=== PATIENT | male | born 1995 | race Caucasian/White ===

== ENCOUNTER 2020-11-26 08:01 | Outpatient (REF) | payer OTHER, SELFPAY | END 2020-11-26 08:02 | disposition home or self-care (01) | LOC: HO.LAB 08:01 | PROVIDERS: Visit Provider Internal Medicine | DX: Z20.822 Contact with and (suspected) exposure to COVID-19 (principal) | CPT/HCPCS: 36415; C9803; U0003 ==

== ENCOUNTER 2021-01-09 15:56 | Emergency (ER) | payer OTHER, SELFPAY ==
--- NOTE | ~2021-01-09 | XR_ITS ---
EXAMINATION: XR ANKLE, RIGHT CLINICAL INFORMATION: Pain status post injury COMPARISON: None TECHNIQUE: AP, lateral, and mortise views of the right ankle. FINDINGS: No acute fracture or dislocation. Ankle mortise is congruent. Talar dome intact. Faint calcification projected recommendation to the calcaneus on the AP view the expected location of the deep fibers of the LCL could represent an age-indeterminate periosteal avulsion fracture or dystrophic calcification related to remote ligamentous injury. XR/XR ankle RT min 3V IMPRESSION: No acute fracture or dislocation. Faint calcification projecting over the expected location of the deep fibers of the LCL. Diagnostic considerations as above.
[2021-01-09 16:12] VITALS: BP 115/74; PULSE 90; RESP 18; TEMP 36.6; O2SAT 96; BMI 20.3
[2021-01-09] MEDS: Ibuprofen 600 MG TABLET PO (16:31)
--- NOTE | 2021-01-09 16:37 | ED_ITS ---
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 He states at 2pm he rotated his ankle outward when he was stepping down on a customers stairs today. He heard a click but doesn't know if it came form his ankle or from his phone hitting the cement. He did not fall. He did not sustain any other injuries. He reports minimal swelling and no bruising as of yet but he is having pain putting pressure on his foot and walking. No numbness or tingling. MD complaint: ankle injury Onset (ago): hour(s) (2) Injury: Right: foot Type of Injury: eversion Place: work Severity: moderate Relieving factors: rest Exacerbating factors: weight bearing, movement and palpation Context: walking Associated symptoms: snap/pop sensation and able to partially bear weight Other symptoms: none Treatments prior to arrival: cold therapy Related Data Previous Rx's Medication Instructions Recorded ibuprofen 600 mg PO Q8H PRN #20 tab 01/09/21 Allergies Allergy/AdvReac Type Severity Reaction Status Date / Time ENVIRONMENTAL Allergy Unknown SNEEZING, Uncoded 07/22/20 16:32 STUFFY NOSE SEASONAL ALLERGIES Allergy Unknown RUNNY NOSE Uncoded 07/22/20 16:32 Review of Systems Review of Systems: Constitutional: No Fever, No Chills Musculoskeletal: + joint pain, No Myalgias Skin: No Skin Lesions, No rash Neuro: No Weakness, No Numbness Heme/Lymph: No Bruising PMFSH Past Medical History Attestation statement: The following information was validated with the patient. Social History Social History Advance Directives: No Advance Directives Information Provided: No Physical Exam Vital Signs: Vital Signs: Last Vital Signs Temp 97.8 F 01/09/21 16:12 Pulse 90 01/09/21 16:12 Resp 18 01/09/21 16:12 BP 115/74 01/09/21 16:12 Pulse Ox 96 01/09/21 16:12 Body Mass Index 20.3 Appearance: Alert. Oriented X3. No acute distress. HEENT: normal inspection CVS: Normal heart rate and rhythm. Pulses normal. Respiratory: No respiratory distress. Skin: Skin warm and dry. Normal skin color. Normal skin turgor. No rashes. Extremities: right ankle with normal inspection, Neuro: Oriented X 3. No motor deficit. No sensory deficit. Course Course Course Narrative: 25 y/o male with right ankle pain after injury today. XR pen manny. Reevaluation(s) Reevaluation #1: XR showing No acute fracture or dislocation. Ankle mortise is congruent. Talar dome intact. Faint calcification projected recommendation to the calcaneus on the AP view the expected location of the deep fibers of the LCL could represent an age-indeterminate periosteal avulsion fracture or dystrophic calcification related to remote ligamentous injury. Given injury occurred today and he is having difficulty/pain with walking, will place in posterior short leg splint and refer to Orthopedics. Results and plan discussed with the patient who agrees with plan. Reevaluation #2: Splint applied by tech with adequate positioning. NV intact distally. Using crutches well. Stable for discharge. Discharge Plan Discharge Clinical Impression: Ankle sprain and strain Avulsion fracture of ankle Qualifiers: Encounter type: initial encounter Fracture type: closed Laterality: right Qualified Code(s): S82.891A - Other fracture of right lower leg, initial encounter for closed fracture Patient Disposition: Home, Self-Care Instructions: Ankle Sprain (ED), Avulsion Fracture (ED) Additional Instructions: Do not bear weight on your ankle until you are evaluated by Orthopedics. Rest and use ice several times per day. Elevate your foot when possible. Take Motrin and/or Tylenol as needed for pain. Follow up with Orthopedics this week. Prescriptions: New ibuprofen 600 mg tablet 600 mg PO Q8H PRN (Reason: pain) Qty: 20 RF: 0 Referrals: [facility] [Provider Group] - 2 days Taran Stanley MD [Physician] - 2 days (avulsion fx ankle) Stand Alone Forms: Work/School Release
--- NOTE | 2021-01-09 18:23 | PC.NURSE ---
POSTERIOR SHORT LEG SPLINT APPLIED TO R LEG. CRUTCHES GIVEN PROPER TRAINING WAS TAUGHT.
== END 2021-01-09 17:50 | disposition home or self-care (01) ==
PROVIDERS: Emergency Provider Internal Medicine; PCP Internal Medicine
DX: S82.891A Other fracture of right lower leg, initial encounter for closed fracture (principal); X50.1XXA Overexertion from prolonged static or awkward postures, initial encounter; Y93.89 Activity, other specified; Y92.018 Other place in single-family (private) house as the place of occurrence of the external cause; Y99.0 Civilian activity done for income or pay
CPT/HCPCS: 29515; 73610; 99283

== ENCOUNTER → 2021-01-18 14:02 | Outpatient (BNVA) | payer OTHER, SELFPAY | PROVIDERS: PCP Internal Medicine; Visit Provider Physician Assistant | DX: S93.401A Sprain of unspecified ligament of right ankle, initial encounter (principal) | CPT/HCPCS: 99202 ==

== ENCOUNTER 2022-04-01 23:08 | Emergency (ER) | payer OTHER, SELFPAY ==
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
[2022-04-01 23:19] VITALS: BP 138/88; BP 143/93; PULSE 113; PULSE 118; RESP 16; TEMP 36.6; O2SAT 95; O2SAT 96; BMI 19.8
[2022-04-02] MEDS: Ketorolac Tromethamine 30 MG/ML VIAL 15 MG IVPUSH (00:24)
[2022-04-02 00:26] LABS: MANUAL DIFF FLAG NO
[2022-04-02 00:28] LABS: Basophils Percent Auto 0.4 % (0-2); Eosinophils Absolute Auto 0.3 X10*3/uL (0.0-0.4); Eosinophils Percent Auto 2.8 % (0-4); Hemoglobin 14.8 g/dl (14.0-18.0); Imm Gran Abs Auto 0.02 X10*3/uL (0.00-0.03); Imm Gran Pct Auto 0.2 % (0.0-0.4); Lymphocytes Absolute Auto 3.1 X10*3/uL (1.2-4.9); Lymphocytes Percent Auto 28.5 % (20-40); Mean Corpuscular HGB Conc 35.2 g/dl (31.0-36.0); Mean Corpuscular Hemoglobin 31.6 pg (27.0-33.0); Mean Corpuscular Volume 89.7 fL (80.0-98.0); Mean Platelet Volume 9.1 fL (9.4-12.4); Monocytes Absolute Auto 0.6 X10*3/uL (0.1-1.2); Monocytes Percent Auto 5.9 % (2-11); Neutrophils Absolute Auto 6.8 x10*3/uL (2.0-8.3); Neutrophils Percent Auto 62.2 % (45-73); Platelet Count 243 X10*3/uL (160-400); Red Blood Count 4.68 X10*6/uL (4.60-5.80); Red Cell Distribution Width 12.4 % (11.0-16.0); White Blood Count 10.9 X10*3/uL (4.8-10.8)
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
[2022-04-02 00:38] LABS: Ethanol 239 mg/dL
[2022-04-02 00:39] LABS: INTERNATIONAL NORM RATIO 0.9 (0.9-1.1); Prothrombin Time 10.6 SEC (9.9-13.0)
--- NOTE | 2022-04-02 00:40 | PC.NURSE ---
Pt A+Ox3, Airway patent, Pt speaking on phone to family, pain meds given, this RN continues to monitor.
[2022-04-02] MEDS: Diphth,Pertus(ACell),Tet Adult 0.5 ML SYRINGE IM (00:42)
[2022-04-02 00:43] LABS: Alanine Aminotransferase 37 U/L (0-40); Albumin Level 4.4 g/dL (3.5-5.0); Alkaline Phosphatase 107 U/L (39-117); Anion Gap 14 (12-20); Aspartate Amino Transferase 49 U/L (5-37); Bilirubin Total 0.7 mg/dL (0.0-1.0); Blood Urea Nitrogen 14 mg/dL (9-16); Calcium 9.3 mg/dL (8.4-10.2); Carbon Dioxide 23 mmol/L (22-29); Chloride 110 mmol/L (96-108); Creatinine Clr Calc Pharmacy 78.4; Estimated Glomerular Filt Rate > 60; Glucose Random 102 mg/dL (60-115); Potassium 3.7 mmol/L (3.3-5.1); Sodium 143 mmol/L (135-145); Total Protein 7.3 g/dL (6.5-8.0)
[2022-04-02 00:54] LABS: COVID-19 Test Negative (Negative); IDNOW Serial# 9DB6401D
[2022-04-02 01:11] VITALS: BP 136/74; PULSE 93; RESP 16; O2SAT 96
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
== END 2022-04-02 01:30 | disposition short-term general hospital (02) ==
LOC: HO.ED 04-02 01:06
PROVIDERS: Emergency Provider Student in an Organized Health Care Education/Training Program
DX: S02.609A Fracture of mandible, unspecified, initial encounter for closed fracture (principal); S50.01XA Contusion of right elbow, initial encounter; S50.311A Abrasion of right elbow, initial encounter; F10.129 Alcohol abuse with intoxication, unspecified; Y90.7 Blood alcohol level of 200-239 mg/100 ml; Y04.2XXA Assault by strike against or bumped into by another person, initial encounter; Y93.9 Activity, unspecified; Y92.9 Unspecified place or not applicable; Y99.9 Unspecified external cause status; Z20.822 Contact with and (suspected) exposure to COVID-19; Z79.899 Other long term (current) drug therapy
CPT/HCPCS: 36415; 70486; 73080; 80053; 82077; 85025; 85610; 87635; 90471; 90715; 96374; 99284; 99285; J1885

== ENCOUNTER 2024-06-16 14:41 | Emergency (ER) | payer OTHER, SELFPAY ==
--- NOTE | ~2024-06-16 | CT_ITS ---
EXAMINATION: CT ANGIOGRAM CHEST CLINICAL INFORMATION: Chest pain to back after cocaine use COMPARISON: Chest radiograph 04/23/2018, CT neck 10/01/2019 TECHNIQUE: Multiple axial images were obtained through the chest after the administration of 70 mL of Omnipaque 350 intravenous contrast. Extensive vascular post-processing including two-dimensional and three-dimensional reformatted images were created and reviewed on an independent workstation. This CT examination was performed using dose optimization techniques as appropriate, variously including the following: *Automated exposure control *Adjustment of mA and/or kV according to patient size (this includes techniques or standardized protocols for targeted exams where dose is matched to indication/reason for exam; i.e. extremities or head) *Use of iterative reconstruction technique DLP: 205 mGy-cm FINDINGS: Vascular: There is a normal caliber ascending thoracic aorta, aortic arch and descending thoracic aorta and proximal abdominal aorta without aneurysm or dissection. The great vessels are all widely patent without stenosis or dissection. Celiac artery, SMA and renal arteries are widely patent. LUNGS: Some mild patchy reticular nodular opacities in the superior segment of the left lower lobe which are likely infectious/inflammatory. There is no dense consolidation. No suspicious pulmonary nodules. Pleura: No pleural effusion or pneumothorax. Mediastinum: Normal thyroid. No bulky mediastinal lymphadenopathy. Normal heart size, no pericardial effusion. No significant coronary artery calcifications. Axilla: No bulky axillary lymphadenopathy. Upper abdomen: No acute abnormality in the visualized upper abdomen. Osseous structures: There is a mild inferior and plate compression deformity in the T4 vertebral body which is age indeterminate, this is new compared with 10/01/2019. Correlate with clinical history and exam. CT/CT angio chest aorta IMPRESSION: 1. No acute vascular abnormality in the chest. 2. Mild patchy reticular nodular opacities in the superior segment of the left lower lobe are likely infectious/inflammatory. 3. Mild inferior endplate compression deformity in the T4 vertebral body which is age indeterminate, this is new compared with 10/01/2019. Correlate with clinical history and exam. Fleischner guidelines were followed.
[2024-06-16 14:45] VITALS: BP 132/88; PULSE 108; O2SAT 97
[2024-06-16 14:51] VITALS: BP 108/67; PULSE 88; RESP 22; TEMP 36.2; O2SAT 99; BMI 18.8
--- NOTE | 2024-06-16 15:03 | ED_ITS ---
HPI - General Adult General Chief complaint: ETOH/Substance Use Stated complaint: PT STS SMOKED TOO MUCH CRACK TODAY PER EMS Time Seen by Provider: 06/16/24 15:16 Source: patient Mode of arrival: ambulatory Limitations: other (poor historian) History of Present Illness ED Provider: DION RANGEL narrative: 28 yo male hx of asthma but using a significant amount of crack cocaine today. He just used 1 hour ago he initially complained of coming here to get help with his substance abuse but in triage room c/o feeling dizzy like he was going to pass out with chest pain going to his back. He feels very nauseated. He notes this has never happened before. He has no problems with his heart that he is aware of. MD complaint: crack cocaine use Onset (ago): day(s) (1) Location: chest Radiation: back Severity: severe Quality: stabbing Pain Consistency: constant Relieving factors: none Exacerbating factors: none Associated symptoms: nausea/vomiting, shortness of breath and weakness Treatments prior to arrival: none Related Data Previous Rx's ?Medication ?Instructions ?Recorded doxycycline hyclate 100 mg tablet 100 mg PO BID #14 tabs 06/17/24 Allergies Allergy/AdvReac Type Severity Reaction Status Date / Time ENVIRONMENTAL Allergy Unknown SNEEZING, Uncoded 06/16/24 14:55 STUFFY NOSE SEASONAL ALLERGIES Allergy Unknown RUNNY NOSE Uncoded 06/16/24 14:55 Review of Systems 2 Review of Systems: Constitutional : No Weight loss, No Fever, No Chills ENT/Mouth : No sore throat, No Rhinorrhea Eyes: No Eye Pain, No Swelling Cardiovascular : pos Chest Pain, pos SOB, no Dyspnea on Exertion, No Orthopnea, No Edema, No Palpitations Respiratory : No Cough, No Sputum Gastrointestinal : pos Nausea, No Vomiting, No Diarrhea, No abdominal Pain, No Hematochezia, No Melena Genitourinary : No Dysuria, No Urinary Frequency Musculoskeletal : No joint pain, No Myalgias, No Joint Swelling Skin : No Skin Lesions, No rash Neuro : No Weakness, No Numbness, No Dizziness, No Headache Psych : pos Anxiety/Panic, No Depression Heme/Lymph: No Bruising, No Lymphadenopathy Endocrine : No Polyuria, No Polydipsia All other systems reviewed and are negative PMFSH Social History Social History Use of substances other than those prescribed or required for medical reasons: Yes Substance Use Type: Crack/Cocaine Substance Use Frequency: Occasionally Last Used Substance: Hours (ago) Advance Directives: No Advance Directives Information Provided: No Do you have a plan to hurt others: No Plan Current occupational status: employed 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 Oriented X3. anxious rude hyperventilating moderate acute distress. Eyes: Pupils equal, round and reactive to light. ENT: Pharynx normal. Neck: Normal inspection. Neck supple. CVS: Normal heart rate and rhythm. Pulses normal. Respiratory: No respiratory distress. Breath sounds normal. Abdomen: Soft and nontender. Skin: Skin warm and clammy. Normal skin color. Extremities: No lower extremity edema. Neuro: Oriented X 3. No motor deficit. No sensory deficit. Course Course Course Narrative: RME performed by Wendy Jennings PA-C. Patient is a 28 year old assigned male at presenting to the emergency department with nausea and dizziness. Patient states that he is concerned because he used too much crack. Detailed physical exam and review of systems are deferred to the cylinder block hole reliner. Labs ordered. Patient placed back in the waiting room pending room availability and results. Reevaluation(s) Reevaluation #1: DR. Loja' note: VSS, no events overnight reported by nursing, care team input is appreciated and patient to be going to [facility] rehab transportation will be provided by care team, discharge patient denies SI, HI, hallucination. Patient had CTA showed possible pneumonia received doxycycline will continue doxycycline was sent to patient's pharmacy, Will discontinue physician observation. Medications Administered Generic Name Dose Route Start Last Admin Trade Name Freq PRN Reason Stop Dose Admin Doxycycline Monohydrate 100 mg 06/16/24 21:00 06/17/24 09:02 Doxycycline Monohydrate 100 Mg Capsule PO 06/23/24 09:01 100 mg BID TAHIR Administration Lorazepam 2 mg 06/16/24 18:36 06/17/24 03:03 Lorazepam 1 Mg Tablet PO 2 mg Q3H PRN Administration Anxiety Discontinued Medications Generic Name Dose Route Start Last Admin Trade Name Paty PRN Reason Stop Dose Admin Lactated Ringer's 1,000 mls @ 999 mls/hr 06/16/24 15:25 06/16/24 16:49 Lr IV 06/16/24 16:25 Infused .Q1H1M ONE Infusion Iohexol 100 ml 06/16/24 16:39 06/16/24 16:39 Iohexol 350 Mg/Ml 100 Ml Infus..Btl IV 06/16/24 16:40 70 ml ONCE ONE Administration Lorazepam 2 mg 06/16/24 15:25 06/16/24 15:39 Lorazepam 2 Mg/Ml Vial IVPUSH 06/16/24 15:26 2 mg ONCE ONE Administration Procedures EJ/Peripheral Line Arm R: Time Out Performed: Yes Skin Cleansed in Sterile Fashion: Yes Size (gauge): 20 IV Secured and Dressing Applied: Yes Patient Tolerated Procedure: well and no complications Medical Decision Making Medical Decision Making [facility] Narrative: 28 yo male with heavy crack cocaine use now with severe anxiety but also chest pain to the back at this time will need basic labs, CTA of chest, repeat EKGs, trop x 2, IV ativan could be coronary spasm, dissection Differential Diagnosis Differential Diagnoses: The differential diagnosis associated with the presentation includes coronary spasm, dissection, drug use, anxiety Admission/Observation Consideration of admission/observation: Escalation of care including admission/observation considered physician observation started at 630pm pending CARE team PO phill for lung possible early pneumonia Lab Data [facility] Lab Attestation statement: I reviewed the patient's lab results. trop flat 06/16/24 15:25 06/16/24 15:25 Labs: Lab Results 06/16/24 06/16/24 06/16/24 Range/Units 15:25 15:53 17:54 WBC 10.7 (4.8-10.8) X10*3/uL RBC 4.91 (4.60-5.80) X10*6/uL Hgb 15.6 (14.0-18.0) g/dl Hct 43.5 (42.0-52.0) % MCV 88.6 (80.0-98.0) fL MCH 31.8 (27.0-33.0) pg MCHC 35.9 (31.0-36.0) g/dl RDW 12.0 (11.0-16.0) % Plt Count 257 (160-400) X10*3/uL MPV 9.1 L (9.4-12.4) fL Immature Gran % (Auto) 1.0 H (0.0-0.4) % Neut % (Auto) 73.7 H (45-73) % Lymph % (Auto) 18.4 L (20-40) % Darke % (Auto) 5.1 (2-11) % Eos % (Auto) 1.4 (0-4) % Baso % (Auto) 0.4 (0-2) % Lymph # (Auto) 2.0 (1.2-4.9) X10*3/uL Darke # (Auto) 0.6 (0.1-1.2) X10*3/uL Eos # (Auto) 0.2 (0.0-0.4) X10*3/uL Baso # (Auto) 0.0 (0.0-0.2) X10*3/uL Abs Immat Gran (auto) 0.11 H (0.00-0.03) X10*3/uL Absolute Neuts (auto) 7.9 (2.0-8.3) x10*3/uL Absolute Nucleated RBC 0.000 (0.0-0.012) X10*3/uL Nucleated RBC % (auto) 0.0 (0.0-0.2) /100WBC Sodium 140 (135-145) mmol/L Potassium 3.6 (3.3-5.1) mmol/L Chloride 103 (96-108) mmol/L Carbon Dioxide 22 (22-29) mmol/L Anion Gap 19 (12-20) BUN 24 H (9-16) mg/dL Creatinine 1.39 (0.5-1.4) mg/dL Estim Creat Clear Calc 60.9 Estimated GFR > 60 Random Glucose 132 H (60-115) mg/dL Calcium 10.8 H D (8.4-10.2) mg/dL Magnesium 2.2 (1.6-2.6) mg/dL Total Bilirubin 1.5 H (0.0-1.0) mg/dL AST 24 (5-37) U/L ALT 24 (0-40) U/L Alkaline Phosphatase 91 (39-117) U/L Total Creatine Kinase 231 H (38-174) U/L Troponin I High Sens < 2.7 < 2.7 (<3.5-35.0) ng/L Total Protein 8.3 H (6.5-8.0) g/dL Albumin 5.2 H (3.5-5.0) g/dL Urine Opiates Screen (Not Detect) Ur Buprenorphine Scrn (Not Detect) ng/mL Ur Oxycodone Screen (Not Detect) ng/mL Urine Methadone Screen (Not Detect) ng/mL Urine Fentanyl Screen (Not Detect) Ur Barbiturates Screen (Not Detect) Ur Phencyclidine Scrn (Not Detect) Ur Amphetamines Screen (Not Detect) U Benzodiazepines Scrn (Not Detect) Urine Cocaine Screen (Not Detect) U Marijuana (THC) Screen (Not Detect) Ethyl Alcohol < 10 mg/dL Influenza Type A (PCR) NEGATIVE (Negative) Influenza Type B (PCR) NEGATIVE (Negative) RSV RNA Qual (PCR) NEGATIVE (Negative) SARS-CoV-2 RNA (RT-PCR) NEGATIVE (Negative) 06/16/24 Range/Units 19:32 WBC (4.8-10.8) X10*3/uL RBC (4.60-5.80) X10*6/uL Hgb (14.0-18.0) g/dl Hct (42.0-52.0) % MCV (80.0-98.0) fL MCH (27.0-33.0) pg MCHC (31.0-36.0) g/dl RDW (11.0-16.0) % Plt Count (160-400) X10*3/uL MPV (9.4-12.4) fL Immature Gran % (Auto) (0.0-0.4) % Neut % (Auto) (45-73) % Lymph % (Auto) (20-40) % Darke % (Auto) (2-11) % Eos % (Auto) (0-4) % Baso % (Auto) (0-2) % Lymph # (Auto) (1.2-4.9) X10*3/uL Darke # (Auto) (0.1-1.2) X10*3/uL Eos # (Auto) (0.0-0.4) X10*3/uL Baso # (Auto) (0.0-0.2) X10*3/uL Abs Immat Gran (auto) (0.00-0.03) X10*3/uL Absolute Neuts (auto) (2.0-8.3) x10*3/uL Absolute Nucleated RBC (0.0-0.012) X10*3/uL Nucleated RBC % (auto) (0.0-0.2) /100WBC Sodium (135-145) mmol/L Potassium (3.3-5.1) mmol/L Chloride (96-108) mmol/L Carbon Dioxide (22-29) mmol/L Anion Gap (12-20) BUN (9-16) mg/dL Creatinine (0.5-1.4) mg/dL Estim Creat Clear Calc Estimated GFR Random Glucose (60-115) mg/dL Calcium (8.4-10.2) mg/dL Magnesium (1.6-2.6) mg/dL Total Bilirubin (0.0-1.0) mg/dL AST (5-37) U/L ALT (0-40) U/L Alkaline Phosphatase (39-117) U/L Total Creatine Kinase (38-174) U/L Troponin I High Sens (<3.5-35.0) ng/L Total Protein (6.5-8.0) g/dL Albumin (3.5-5.0) g/dL Urine Opiates Screen Not Detected (Not Detect) Ur Buprenorphine Scrn Not Detected (Not Detect) ng/mL Ur Oxycodone Screen Not Detected (Not Detect) ng/mL Urine Methadone Screen Not Detected (Not Detect) ng/mL Urine Fentanyl Screen Not Detected (Not Detect) Ur Barbiturates Screen Not Detected (Not Detect) Ur Phencyclidine Scrn Not Detected (Not Detect) Ur Amphetamines Screen Not Detected (Not Detect) U Benzodiazepines Scrn Not Detected (Not Detect) Urine Cocaine Screen POSITIVE H (Not Detect) U Marijuana (THC) Screen Not Detected (Not Detect) Ethyl Alcohol mg/dL Influenza Type A (PCR) (Negative) Influenza Type B (PCR) (Negative) RSV RNA Qual (PCR) (Negative) SARS-CoV-2 RNA (RT-PCR) (Negative) Independent Interpretation I performed an independent interpretation of an: EKG and CT Scan (negative no dissection possible early pneumonia) Interpretation: Rate: 87 Rhythm: NSR [place]: normal Normal P waves. Normal MARCIA. Normal QRS complex. ST T wave : inverted t waves V1, flat t wave aVL, nonspecific ST T wave changes lateral leads qTC: 457 prior studies: no sig change The study has been interpreted contemporaneously by me. EKG #2 Rate: 109 Rhythm: sinus tach [place]: normal Normal P waves. Normal MARCIA. Normal QRS complex. ST T wave : artifact no CONSTANTINE qTC: 474 prior studies: no acute ischemia The study has been interpreted contemporaneously by me. . Radiology Impression Discussion of test interpretation with radiology: I have reviewed the radiologist's reading. External Record Review External record reviewed: Inpatient record Critical Care Time Critical Care Time Critical Care Time: Yes Total Critical Care Time: 45 Attestation: repeat assessment, IVF, IV ativan for agitation I attest to this time spent taking care of the patient Discharge Plan Discharge Clinical Impression: Cocaine abuse, Atypical chest pain, Pneumonia Patient Disposition: Home, Self-Care Instructions: Community Acquired Pneumonia (DC) Prescriptions: New doxycycline hyclate 100 mg tablet 100 mg PO BID Qty: 14 0RF Print Language: Telugu
--- NOTE | 2024-06-16 15:05 | ECG_ITS ---
Test Reason : etoh Blood Pressure : / mmHG Vent. Rate : 087 BPM Atrial Rate : 087 BPM P-R Int : 134 ms QRS Dur : 080 ms QT Int : 380 ms P-R-T Axes : 076 077 059 degrees QTc Int : 457 ms Normal sinus rhythm Normal ECG When compared with ECG of 03-OCT-2019 08:34, Vent. rate has increased BY 32 BPM QT has lengthened Referred By: Wendy Jennings Electronically Signed By:CHANG HLETON
--- NOTE | 2024-06-16 15:16 | ECG_ITS ---
Test Reason : cp Blood Pressure : / mmHG Vent. Rate : 109 BPM Atrial Rate : 109 BPM P-R Int : 122 ms QRS Dur : 084 ms QT Int : 352 ms P-R-T Axes : 079 074 043 degrees QTc Int : 474 ms Artifact in tracing Sinus tachycardia Nonspecific ST abnormality Borderline ECG When compared with ECG of 16-JUN-2024 15:06, No significant change was found Referred By: Yaa Moon Electronically Signed By:CHANG HELTON
[2024-06-16 15:30] LABS: MANUAL DIFF FLAG NO
[2024-06-16 15:31] LABS: Basophils Percent Auto 0.4 % (0-2); Eosinophils Absolute Auto 0.2 X10*3/uL (0.0-0.4); Eosinophils Percent Auto 1.4 % (0-4); Hematocrit 43.5 % (42.0-52.0); Hemoglobin 15.6 g/dl (14.0-18.0); Imm Gran Abs Auto 0.11 X10*3/uL (0.00-0.03); Lymphocytes Percent Auto 18.4 % (20-40); Mean Corpuscular HGB Conc 35.9 g/dl (31.0-36.0); Mean Corpuscular Hemoglobin 31.8 pg (27.0-33.0); Mean Corpuscular Volume 88.6 fL (80.0-98.0); Mean Platelet Volume 9.1 fL (9.4-12.4); Monocytes Absolute Auto 0.6 X10*3/uL (0.1-1.2); Monocytes Percent Auto 5.1 % (2-11); Neutrophils Absolute Auto 7.9 x10*3/uL (2.0-8.3); Neutrophils Percent Auto 73.7 % (45-73); Platelet Count 257 X10*3/uL (160-400); Red Blood Count 4.91 X10*6/uL (4.60-5.80); White Blood Count 10.7 X10*3/uL (4.8-10.8)
[2024-06-16] MEDS: Lactated Ringers 1,000 ML 999 ML IV (15:36)
[2024-06-16] MEDS: LORazepam 2 MG/ML VIAL IVPUSH (15:39)
--- NOTE | 2024-06-16 15:49 | MHC.CM.ED ---
CM received telephone call from patients mother, Jenny Damon requesting a call back. CM spoke with patient. Pt states he wants help and he wants to do this himself. He requests that CM not call his mother at this time. CM will respect his wishes. Jenny Damon ([phone]). Primary RN aware.
[2024-06-16 16:17] LABS: Alanine Aminotransferase 24 U/L (0-40); Albumin Level 5.2 g/dL (3.5-5.0); Alkaline Phosphatase 91 U/L (39-117); Anion Gap 19 (12-20); Aspartate Amino Transferase 24 U/L (5-37); Bilirubin Total 1.5 mg/dL (0.0-1.0); Blood Urea Nitrogen 24 mg/dL (9-16); Calcium 10.8 mg/dL (8.4-10.2); Carbon Dioxide 22 mmol/L (22-29); Chloride 103 mmol/L (96-108); Creatinine Clr Calc Pharmacy 60.9; Estimated Glomerular Filt Rate > 60; Ethanol < 10 mg/dL; Glucose Random 132 mg/dL (60-115); Magnesium 2.2 mg/dL (1.6-2.6); Potassium 3.6 mmol/L (3.3-5.1); Sodium 140 mmol/L (135-145); Total Protein 8.3 g/dL (6.5-8.0); Troponin-I High Sensitivity < 2.7 ng/L (<3.5-35.0)
[2024-06-16 16:27] LABS: Influenza A PCR NEGATIVE (Negative); Influenza B PCR NEGATIVE (Negative); Resp Syncy Virus RNA Qual PCR NEGATIVE (Negative); SARS COV2 PCR INHOUSE NEGATIVE (Negative)
[2024-06-16] MEDS: iohexoL 350 MG/ML 100 ML INFUS..BTL IV (16:39)
[2024-06-16 17:49] VITALS: BP 130/72; PULSE 84; RESP 20; TEMP 36.3; O2SAT 98
--- NOTE | 2024-06-16 18:09 | MHC.RECOVSUP ---
? Reason for consult Recovery Support o Current location: ed19h o Identified substance use concern: Crack - Seeking ATS (detox) - Support ? Intervention: o Community resources provided o Harm reduction discussion ? Plan: o Patient awaiting crisis evaluation o Patient to follow up with [facility] after discharge ? Additional information: Met with patient and he stated that he needs help.. He talked about his mental health and he stated that he hasn't taking meds in a really long time.. And patient wants to go to a dual recovery place. I spoke with the care team and doctor is making a request.
[2024-06-16 18:30] LABS: Troponin-I High Sensitivity < 2.7 ng/L (<3.5-35.0)
[2024-06-16 19:53] LABS: Amphetamine Screen Urine Not Detected (Not Detect); Barbiturates, Urine Not Detected (Not Detect); Benzodiazepines Screen Urine Not Detected (Not Detect); Buprenorphine Scr Not Detected (Not Detect); Cannabinoid Screen Urine Not Detected (Not Detect); Cocaine Screen Urine POSITIVE (Not Detect); Fentanyl, urine Not Detected (Not Detect); Methadone Screen, Urine Not Detected (Not Detect); Opiate Screen Urine Not Detected (Not Detect); Oxycodone Screen Urine Not Detected (Not Detect); Phencyclidine Screen Urine Not Detected (Not Detect)
[2024-06-16] MEDS: Doxycycline Monohydrate 100 MG CAPSULE PO (20:01)
[2024-06-16] MEDS: LORazepam 1 MG TABLET 2 MG PO (20:02)
[2024-06-17] MEDS: LORazepam 1 MG TABLET 2 MG PO (03:03)
[2024-06-17 03:13] VITALS: BP 128/79; PULSE 86; RESP 17; TEMP 36.8; O2SAT 98
--- NOTE | 2024-06-17 06:47 | PC.NURSE ---
Patient slept through the night, no distress observed/reported, asymptomatic of ETOH withdrawal, med and meal compliant, no behavior and safety concerns, disposition pending recovery team, VSS, will continue to monitor
--- NOTE | 2024-06-17 08:13 | MHC.RECOVRN ---
Addendum entered by Mary Leos 06/17/24 10:00: Pt reports cocaine use, INH, 20-30 bags daily x 3 months. Denies hx ATS. Original Note: Pts referral sent to [facility].
[2024-06-17] MEDS: Doxycycline Monohydrate 100 MG CAPSULE PO (09:02)
--- NOTE | 2024-06-17 09:34 | MHC.RECOVRN ---
Pt accepted to [facility] pending phone screen.
[2024-06-17 12:49] VITALS: BP 126/60; PULSE 88; RESP 18; TEMP 36.7; O2SAT 98
== END 2024-06-17 12:49 | disposition home or self-care (01) ==
PROVIDERS: Physician Assistant Medical; Emergency Provider Emergency Medicine
DX: J18.9 Pneumonia, unspecified organism (principal); R11.2 Nausea with vomiting, unspecified; R06.02 Shortness of breath; R53.1 Weakness; R42 Dizziness and giddiness; F14.10 Cocaine abuse, uncomplicated; F41.9 Anxiety disorder, unspecified; R07.89 Other chest pain; M54.50 Low back pain, unspecified; Z03.818 Encounter for observation for suspected exposure to other biological agents ruled out; Z79.899 Other long term (current) drug therapy
CPT/HCPCS: 0241U; 36415; 36556; 71275; 80053; 80307; 82550; 83735; 84484; 85025; 93005; 96361; 96374; 99285; J2060; J7120; Q9967; S9485

== ENCOUNTER → 2024-06-16 15:05 | Outpatient (BNV) | payer OTHER, SELFPAY | PROVIDERS: Emergency Provider Emergency Medicine; Visit Provider Internal Medicine | DX: R07.9 Chest pain, unspecified (principal) | CPT/HCPCS: 93010 ==

== ENCOUNTER 2025-01-21 02:30 | Emergency (ER) | payer OTHER, SELFPAY ==
--- NOTE | 2025-01-21 | ECG_ITS ---
Test Reason : SYNCOPE Blood Pressure : */* mmHG Vent. Rate : 100 BPM Atrial Rate : 100 BPM P-R Int : 138 ms QRS Dur : 84 ms QT Int : 346 ms P-R-T Axes : 73 74 45 degrees QTcB Int : 446 ms Normal sinus rhythm Possible Left atrial enlargement Borderline ECG When compared with ECG of 16-Jun-2024 15:13, Nonspecific T wave abnormality no longer evident in Anterior leads Referred By: Generic ED Physician Electronically Signed By: Jean Claude Garcia
[2025-01-21 02:34] VITALS: BP 128/64; PULSE 110; O2SAT 98
[2025-01-21 02:38] VITALS: BP 131/73; PULSE 109; RESP 20; TEMP 36.3; O2SAT 98; BMI 18.2
[2025-01-21 03:05] LABS: Basophils Percent Auto 0.5 % (0-2); Eosinophils Absolute Auto 0.6 X10*3/uL (0.0-0.4); Eosinophils Percent Auto 7.9 % (0-4); Hematocrit 42.4 % (42.0-52.0); Hemoglobin 15.1 g/dl (14.0-18.0); Imm Gran Abs Auto 0.01 X10*3/uL (0.00-0.03); Imm Gran Pct Auto 0.1 % (0.0-0.4); Lymphocytes Absolute Auto 2.2 X10*3/uL (1.2-4.9); Lymphocytes Percent Auto 29.7 % (20-40); MANUAL DIFF FLAG NO; Mean Corpuscular HGB Conc 35.6 g/dl (31.0-36.0); Mean Corpuscular Hemoglobin 31.8 pg (27.0-33.0); Mean Corpuscular Volume 89.3 fL (80.0-98.0); Mean Platelet Volume 9.1 fL (9.4-12.4); Monocytes Absolute Auto 0.6 X10*3/uL (0.1-1.2); Monocytes Percent Auto 8.5 % (2-11); Neutrophils Percent Auto 53.3 % (45-73); Platelet Count 216 X10*3/uL (160-400); Red Blood Count 4.75 X10*6/uL (4.60-5.80); Red Cell Distribution Width 12.1 % (11.0-16.0); White Blood Count 7.4 X10*3/uL (4.8-10.8)
[2025-01-21 03:18] LABS: Amphetamine Screen Urine Not Detected (Not Detect); Barbiturates, Urine Not Detected (Not Detect); Benzodiazepines Screen Urine Not Detected (Not Detect); Buprenorphine Scr Not Detected (Not Detect); Cannabinoid Screen Urine Not Detected (Not Detect); Cocaine Screen Urine POSITIVE (Not Detect); Fentanyl, urine Not Detected (Not Detect); Methadone Screen, Urine Not Detected (Not Detect); Opiate Screen Urine Not Detected (Not Detect); Oxycodone Screen Urine Not Detected (Not Detect); Phencyclidine Screen Urine Not Detected (Not Detect)
[2025-01-21 03:28] LABS: Alanine Aminotransferase 23 U/L (0-40); Albumin Level 4.4 g/dL (3.5-5.0); Alkaline Phosphatase 98 U/L (39-117); Anion Gap 14 (12-20); Aspartate Amino Transferase 29 U/L (5-37); Bilirubin Total 0.8 mg/dL (0.0-1.0); Blood Urea Nitrogen 22 mg/dL (9-16); Calcium 9.5 mg/dL (8.4-10.2); Carbon Dioxide 24 mmol/L (22-29); Chloride 107 mmol/L (96-108); Estimated Glomerular Filt Rate > 60; Ethanol < 10 mg/dL; Glucose Random 96 mg/dL (60-115); Potassium 4.2 mmol/L (3.3-5.1); Sodium 141 mmol/L (135-145); Total Protein 7.5 g/dL (6.5-8.0)
--- NOTE | 2025-01-21 05:01 | ED.SYNCOPE ---
HPI - Syncope General Chief Complaint: Syncope Stated Complaint: syncopal episode fall, LOC, told EMS used crack Time Seen by Provider: 01/21/25 05:01 Source: patient and EMS Mode of arrival: EMS Limitations: no limitations History of Present Illness ED Provider: Dr. Gayle Alaniz HPI narrative: Patient comes to the emergency room via ambulance from a gas station. Patient had a syncopal episode. Patient states that he used a lot of cocaine prior to passing out. Denies chest pain or shortness of breath. Patient states that this time he feels almost back to normal. Patient denies drinking alcohol. Related Data Previous Rx's ?Medication ?Instructions ?Recorded doxycycline hyclate 100 mg tablet 100 mg PO BID #14 tabs 06/17/24 Allergies Allergy/AdvReac Type Severity Reaction Status Date / Time ENVIRONMENTAL Allergy Unknown SNEEZING, Uncoded 01/21/25 02:41 STUFFY NOSE SEASONAL ALLERGIES Allergy Unknown RUNNY NOSE Uncoded 01/21/25 02:41 Review of Systems Review of Systems: Constitutional : No Weight loss, No Fever, No Chills, No Night Sweats, No Fatigue, No Malaise ENT/Mouth : No Hearing loss, No Ear Pain, No Nasal Congestion, No Sinus Pain, No Hoarseness, No sore throat, No Rhinorrhea, No Swallowing Difficulty Eyes: No Eye Pain, No Swelling, No Redness, No Foreign Body, No Discharge, No Vision Changes Cardiovascular : No Chest Pain, No SOB, No Dyspnea on Exertion, No Orthopnea, No Edema, No Palpitations Respiratory : No Cough, No Sputum, No Wheezing, No Smoke Exposure, No Dyspnea Gastrointestinal : No Nausea, No Vomiting, No Diarrhea, No Constipation, No abdominal Pain, No Hematochezia, No Melena Genitourinary : no irregular bleeding, No Dysuria, No Urinary Frequency, No Hematuria, No Urinary Incontinence, No Urgency, No Flank Pain, No Urinary Flow Changes, No Hesitancy Musculoskeletal : No joint pain, No Myalgias, No Joint Swelling Skin : No Skin Lesions, No rash Neuro : No Weakness, No Numbness, No Paresthesias, Complaining of a syncopal episode, No Dizziness, No Headache Psych : No Anxiety/Panic, No Depression, No SI/HI/AH/VH, admits to using cocaine, Heme/Lymph: No Bruising, No Bleeding,No Lymphadenopathy Endocrine : No Polyuria, No Polydipsia, No Temperature Intolerance [facility] Past Medical History Medical History (Updated 01/21/25 @ 05:09 by Gayle Alaniz MD) Cocaine abuse Social History Social History Substance Use Type: Crack/Cocaine Advance Directives: No Advance Directives Information Provided: Yes Current occupational status: employed 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 Oriented X3. No acute distress. Eyes: Pupils equal, round and reactive to light. ENT: Pharynx normal. Neck: Normal inspection. Neck supple. No lymph nodes noted. No crepitus CVS: Normal heart rate and rhythm. Pulses normal. Normal S1 and S2 Respiratory: No respiratory distress. Breath sounds normal. No Wheezing. No rales Abdomen: Soft and nontender. No rigidity. No distention. Skin: Skin warm and dry. Normal skin color. Normal skin turgor. Extremities: No lower extremity edema. No Lacerations. No Rash Neuro: Oriented X 3. No motor deficit. No sensory deficit. Moving all extremities. No slurred speech. CN 2 through 12 grossly intact Psych: calm, cooperative, normal affect Medical Decision Making Medical Decision Making MDM Narrative: my interpretation of labs, normal hematology, normal chemistry EKG: Normal sinus rhythm, heart rate 100, no ST segment depression or elevation, no T-wave inversion, QTC 446 patient's troponin is negative. D-dimer is elevated, 446. Patient is a bit tachycardic. I discussed with the patient that the next best step is to rule out a pulmonary embolism considering that he has tachycardia, elevated dimer and a syncopal episode. Patient states that he would like to be discharged. Patient needs to take care of his grandmother at home. I discussed with the patient that having a pulmonary embolism may be life threatening. Patient states that he would like to be discharged home. Orthostatic vitals pending. patient states that he does not feel any different sitting or standing, states that he feels well and requesting to be discharged home Differential Diagnosis Differential Diagnoses: The differential diagnosis associated with the presentation includes ( vasovagal syncope, polysubstance abuse, coronary vasospasms) Admission/Observation Consideration of admission/observation: Escalation of care including admission/observation considered ( given patient's history of primarily today, admission was considered) Lab Data MDM Lab Attestation statement: I reviewed the patient's lab results. 01/21/25 02:59 01/21/25 02:59 Labs: Lab Results 01/21/25 01/21/25 01/21/25 Range/Units 02:59 02:59 05:14 WBC 7.4 (4.8-10.8) X10*3/uL RBC 4.75 (4.60-5.80) X10*6/uL Hgb 15.1 (14.0-18.0) g/dl Hct 42.4 (42.0-52.0) % MCV 89.3 (80.0-98.0) fL MCH 31.8 (27.0-33.0) pg MCHC 35.6 (31.0-36.0) g/dl RDW 12.1 (11.0-16.0) % Plt Count 216 (160-400) X10*3/uL MPV 9.1 L (9.4-12.4) fL Immature Gran % (Auto) 0.1 (0.0-0.4) % Neut % (Auto) 53.3 (45-73) % Lymph % (Auto) 29.7 (20-40) % Potter % (Auto) 8.5 (2-11) % Eos % (Auto) 7.9 H (0-4) % Baso % (Auto) 0.5 (0-2) % Lymph # (Auto) 2.2 (1.2-4.9) X10*3/uL Potter # (Auto) 0.6 (0.1-1.2) X10*3/uL Eos # (Auto) 0.6 H (0.0-0.4) X10*3/uL Baso # (Auto) 0.0 (0.0-0.2) X10*3/uL Abs Immat Gran (auto) 0.01 (0.00-0.03) X10*3/uL Absolute Neuts (auto) 4.0 (2.0-8.3) x10*3/uL Absolute Nucleated RBC 0.000 (0.0-0.012) X10*3/uL Nucleated RBC % (auto) 0.0 (0.0-0.2) /100WBC D-Dimer High Sensitivty 473 NG/ML Sodium 141 (135-145) mmol/L Potassium 4.2 (3.3-5.1) mmol/L Chloride 107 (96-108) mmol/L Carbon Dioxide 24 (22-29) mmol/L Anion Gap 14 (12-20) BUN 22 H (9-16) mg/dL Creatinine 1.01 (0.5-1.4) mg/dL Estim Creat Clear Calc 83.0 Estimated GFR > 60 Random Glucose 96 (60-115) mg/dL Calcium 9.5 D (8.4-10.2) mg/dL Total Bilirubin 0.8 (0.0-1.0) mg/dL AST 29 (5-37) U/L ALT 23 (0-40) U/L Alkaline Phosphatase 98 (39-117) U/L Troponin I High Sens < 2.7 (<3.5-35.0) ng/L Total Protein 7.5 (6.5-8.0) g/dL Albumin 4.4 (3.5-5.0) g/dL Urine Opiates Screen Not Detected (Not Detect) Ur Buprenorphine Scrn Not Detected (Not Detect) ng/mL Ur Oxycodone Screen Not Detected (Not Detect) ng/mL Urine Methadone Screen Not Detected (Not Detect) ng/mL Urine Fentanyl Screen Not Detected (Not Detect) Ur Barbiturates Screen Not Detected (Not Detect) Ur Phencyclidine Scrn Not Detected (Not Detect) Ur Amphetamines Screen Not Detected (Not Detect) U Benzodiazepines Scrn Not Detected (Not Detect) Urine Cocaine Screen POSITIVE H (Not Detect) U Marijuana (THC) Screen Not Detected (Not Detect) Ethyl Alcohol < 10 Cancelled mg/dL Independent Interpretation I performed an independent interpretation of an: EKG Critical Care Time Critical Care Time Critical Care Time: Yes Total Critical Care Time: 30 Attestation: I have personally provided critical care time. Time includes review of lab data, radiology results, discussion with consultants, and monitoring for potential decompensation. Intervention performed as documented. Discharge Plan Discharge Clinical Impression: Syncope, Cocaine abuse Patient Disposition: Left Against Medical Advice Instructions: Syncope (ED), Cocaine Abuse (ED) Additional Instructions: Please follow-up with your primary care physician tomorrow. If you have any worsening or new symptoms, please return to the emergency room or call 911 Prescriptions: No Action doxycycline hyclate 100 mg tablet 100 mg PO BID Qty: 14 0RF Print Language: Romanian
[2025-01-21 05:16] LABS: Troponin-I High Sensitivity < 2.7 ng/L (<3.5-35.0)
[2025-01-21 05:28] LABS: D Dimer High Sensitivity 473 NG/ML
[2025-01-21 05:37] VITALS: BP 113/65; BP 127/61; PULSE 79; PULSE 87
[2025-01-21 05:39] VITALS: BP 106/61; PULSE 107
[2025-01-21 05:50] VITALS: BP 105/60; PULSE 90; RESP 16; TEMP 36.4; O2SAT 98
[2025-01-21 05:57] VITALS: BP 105/60; PULSE 90; RESP 16; TEMP 36.4; O2SAT 98
== END 2025-01-21 06:10 | disposition left against medical advice (07) ==
PROVIDERS: Emergency Provider Emergency Medicine
DX: R55 Syncope and collapse (principal); R94.31 Abnormal electrocardiogram [ECG] [EKG]; F14.10 Cocaine abuse, uncomplicated; R00.0 Tachycardia, unspecified; Z51.81 Encounter for therapeutic drug level monitoring; Z79.899 Other long term (current) drug therapy
CPT/HCPCS: 36415; 80053; 80307; 84484; 85025; 85379; 93005; 99284

== ENCOUNTER → 2025-01-21 02:43 | Outpatient (BNV) | payer OTHER, SELFPAY | PROVIDERS: Emergency Provider Emergency Medicine; Visit Provider Internal Medicine Cardiovascular Disease | DX: R55 Syncope and collapse (principal) | CPT/HCPCS: 93010 ==

== ENCOUNTER 2025-05-19 08:46 | Emergency (ER) | payer OTHER, SELFPAY ==
[2025-05-19 08:59] VITALS: BP 131/82; BP 134/85; PULSE 106; PULSE 98; RESP 16; TEMP 36.9; O2SAT 94; BMI 24.4
[2025-05-19 09:04] VITALS: BP 131/82; PULSE 98; RESP 16; TEMP 36.9; O2SAT 94
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
--- NOTE | 2025-05-19 10:06 | ECG_ITS ---
Test Reason : syncope Blood Pressure : */* mmHG Vent. Rate : 77 BPM Atrial Rate : 77 BPM P-R Int : 146 ms QRS Dur : 76 ms QT Int : 366 ms P-R-T Axes : 74 77 59 degrees QTcB Int : 414 ms Normal sinus rhythm Normal ECG When compared with ECG of 21-Jan-2025 02:43, No significant change was found Referred By: Jose Jean-Baptiste Electronically Signed By: CHANG HELTON
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
[2025-05-19 10:36] LABS: MANUAL DIFF FLAG NO
--- OUTSIDE RECORDS SUMMARY | 2025-05-19 10:43 | XMS_ITS | Encounter Summary ---
Author Organization [facility] Address [address] [place] [phone] Phone Care Team Providers Care Supervisor Brake Repair Name Role Phone Vianney Aguilar MD Primary Care Provider Encounter Details Date Type Department Care Team (Late st Contact Info) Description 03/11/2010 Documentation EM Family Medicine [address] [place] [address] Family Medicine, Physician [address] [place], [place] [id number] Social History Tobacco Use Types Packs/Day Years Used Date Smoking Tobacco: Never Assessed Sex and Gender Information Value Date Recorded Sex Assigned at Not on file Legal Sex Male 4:42 PM EDT Gender Identity Not on file Sexual Orientation Not on file documented as of this encounter Plan of Treatment Not on file documented as of this encounter Visit Diagnoses Not on filedocumented in this encounter Care Teams Supervisor Brake Repair Relationship Specialty Start Date End Date Vianney Aguilar MD [address] [place] [address] [place] [address] PCP - General 06/15/17 02/15/23 documented as of this encounter
[2025-05-19 10:47] VITALS: BP 131/82; PULSE 98; RESP 16; TEMP 36.9; O2SAT 94
[2025-05-19 10:51] LABS: Hematocrit 49.5 % (42.0-52.0); Hemoglobin 17.1 g/dl (14.0-18.0); Imm Gran Abs Auto 0.02 X10*3/uL (0.00-0.03); Imm Gran Pct Auto 0.2 % (0.0-0.4); Lymphocytes Absolute Auto 1.3 X10*3/uL (1.2-4.9); Mean Corpuscular HGB Conc 34.5 g/dl (31.0-36.0); Mean Corpuscular Hemoglobin 32.1 pg (27.0-33.0); Mean Corpuscular Volume 92.9 fL (80.0-98.0); NRBC Abs Auto 0.000 X10*3/uL (0.0-0.012); NRBC Pct Auto 0.0 /100WBC (0.0-0.2); Platelet Count 270 X10*3/uL (160-400); Red Blood Count 5.33 X10*6/uL (4.60-5.80); White Blood Count 8.8 X10*3/uL (4.8-10.8)
[2025-05-19 10:54] LABS: Cannabinoid Screen Urine Not Detected (Not Detect)
--- NOTE | 2025-05-19 10:56 | PC.NURSE ---
Patient requested to leave AMA having to take grandmother to an appointment. Patient did have lab work and EKG performed before leaving.
[2025-05-19 11:03] LABS: Alanine Aminotransferase 23 U/L (0-40); Albumin Level 4.8 g/dL (3.5-5.0); Alkaline Phosphatase 119 U/L (39-117); Anion Gap 11 (12-20); Aspartate Amino Transferase 23 U/L (5-37); Blood Urea Nitrogen 22 mg/dL (9-16); Calcium 9.7 mg/dL (8.4-10.2); Carbon Dioxide 31 mmol/L (22-29); Chloride 105 mmol/L (96-108); Creatinine Clr Calc Pharmacy 103.8; Estimated Glomerular Filt Rate > 60; Lipase 12 U/L (8-78); Magnesium 2.5 mg/dL (1.6-2.6); Potassium 4.1 mmol/L (3.3-5.1); Sodium 143 mmol/L (135-145); Total Protein 7.8 g/dL (6.5-8.0)
[2025-05-19 11:09] LABS: Troponin-I High Sensitivity < 2.7 ng/L (<3.5-35.0)
== END 2025-05-19 10:56 | disposition left against medical advice (07) ==
PROVIDERS: Physician Assistant; Emergency Provider Emergency Medicine
DX: R55 Syncope and collapse (principal); F14.90 Cocaine use, unspecified, uncomplicated; Z53.29 Procedure and treatment not carried out because of patient's decision for other reasons
CPT/HCPCS: 36415; 80053; 80307; 82550; 83690; 83735; 84484; 85025; 93005; 99283; 99285

== ENCOUNTER → 2025-05-19 10:06 | Outpatient (BNV) | payer OTHER, SELFPAY | PROVIDERS: Emergency Provider Emergency Medicine; Visit Provider Internal Medicine | DX: R55 Syncope and collapse (principal) | CPT/HCPCS: 93010 ==

== ENCOUNTER 2025-08-26 13:21 | Emergency (ER) | payer OTHER, SELFPAY ==
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
[2025-08-26 13:36] VITALS: BP 135/85; BP 136/75; PULSE 122; PULSE 130; RESP 20; TEMP 37.1; O2SAT 91; O2SAT 94; BMI 20.4
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
[2025-08-26 13:52] VITALS: BP 00/00; PULSE 0; RESP 0; TEMP -17.7; TEMP 0
--- OUTSIDE RECORDS SUMMARY | 2025-08-26 19:43 | XMS_ITS | Clinical Summary ---
Author Organization [facility] Address [address] [place] [id number] Phone Care Team Providers Care Desulphurizer Operator Name Role Phone Unavailable Primary Care Provider Unavailabl e Immunizations Immunization Administration Dates Next Due DTP 03/04/2001, 8,11/04/1996, 996,03/04/1996 Hep B, ped/adol 10/06/1996,03/04/1996 Hib (PRP-T) 04/04/1997, 6,05/04/1996, 996 IPV 06/04/2000,05/04/1996,03/04/1996 Influenza Split 08/09/2011 Influenza, injectable, trivalent 08/28/2008 MMR 05/10/2000,01/01/1997 Meningococcal Conj (Menactra) MCV4P 08/28/2008 OPV 10/06/1996 Tdap 08/28/2008 Varicella 08/28/2008,01/01/1997 Family History Relation Name Status Comments Father Alive Father: Alive a nd well Maternal Grandfather Materna l grandfather: Elevated cholesterol, Hypertension, Diabetes mellitus, Heart disease Maternal Grandmother Materna l grandmother: hip replacement, Hypertension Mother Mother: RDS lef t hand, Asthma, GERD, allergies Other Family history of Cancer -colon Paternal Grandmother Paterna l grandmother: Cancer -stomach Social History Tobacco Use Types Packs/Day Years Used Date Smoking Tobacco: Never Assessed Sex and Gender Information Value Date Recorded Sex Assigned at Not on file Legal Sex Male 4:42 PM EDT Gender Identity Not on file Sexual Orientation Not on file Last Filed Vital Signs Vital Sign Reading Time Taken Comments Blood Pressure 90/70 05/02/2012 12:00 AM EDT Pulse 60 06/13/2011 12:00 AM EDT Temperature 36.5 C (97.7 F) 05/02/2012 12:00 AM EDT Respiratory Rate - - Oxygen Saturation - - Inhaled Oxygen Concentration - - Weight 49.4 kg (109 lb) 05/02/2012 12:00 AM EDT Height 165.1 cm (5' 5 ) 05/02/2012 12:00 AM EDT Body Mass Index 18.14 05/02/2012 12:00 AM EDT Plan of Treatment Health Maintenance Due Date Last Done Comments Hepatitis B Vaccines (3 of 3 - 3-dose series) 12/01/1996 10/06/1996, 03/04/1996 DTaP,Tdap,and Td Vaccines (7 - Td or Tdap) 08/28/2018 08/28/2008, 03/04/2001, 03/04/1998, Additional history exists HPV Vaccines (1 - 3-dose SCDM series) 2022 Influenza Vaccines (#1) 2025 08/09/2011, 08/28 COVID-19 Vaccine ( season) 2025 HIB Vaccines Completed 04/04/1997, 10/07, 05/04/1996, Additional history exists MMR Vaccines Completed 05/10/2000, 01/01/1997 IPV Vaccines Completed 06/04/2000, 12/1995, 05/04/1996, Additional history exists Meningococcal Vaccine Aged Out 08/28/2008 No juvencio georgie eligible based on patient's age to complete this topic Varicella Vaccines Completed 08/28/2008, 01/01/1997 Hepatitis A Vaccines Aged Out No long er eligible based on patient's age to complete this topic Men B Vaccine Aged Out No longer elig ible based on patient's age to complete this topic Pneumococcal Vaccine Aged Out No long er eligible based on patient's age to complete this topic
--- OUTSIDE RECORDS SUMMARY | 2025-08-26 19:43 | XMS_ITS | Encounter Summary ---
Author Organization [facility] Address [address] [place] [address] Phone Care Team Providers Care Nursing Technician Name Role Phone Vianney Aguilar MD Primary Care Provider [phone] Encounter Details Date Type Department Care Team (Late st Contact Info) Description 06/21/2017 Conversion Encounter [facility] [place] [address] [place], [place] [phone] Social History Tobacco Use Types Packs/Day Years [...] on filedocumented in this encounter Care Teams Nursing Technician Relationship Specialty Start Date End Date Vianney Aguilar MD [address] [place] [address] PCP - General 06/15/17 02/15/23 documented as of this encounter
--- OUTSIDE RECORDS SUMMARY | 2025-08-26 19:43 | XMS_ITS | Encounter Summary ---
Author Organization [facility] Address [address] [place] [phone] Phone Care Team Providers Care Line Up Machine Operator Name Role Phone Vianney Aguilar MD Primary Care Provider Encounter Details Date Type Department Care Team (Late st Contact Info) Description 03/11/2010 Documentation EM Family Medicine [address] [place] [address] Family Medicine, Physician [address] [place], [place] [phone] Social History Tobacco Use Types Packs/Day Years [...] on filedocumented in this encounter Care Teams Line Up Machine Operator Relationship Specialty Start Date End Date Vianney Aguilar MD [address] [place] [address] [place] [address] PCP - General 06/15/17 02/15/23 documented as of this encounter
--- OUTSIDE RECORDS SUMMARY | 2025-08-26 19:43 | XMS_ITS | Encounter Summary ---
Author Organization [facility] Address [address] [place] [phone] Phone Care Team Providers Care Day Haul Youth Supervisor Name Role Phone Vianney Aguilar MD Primary Care Provider Encounter Details Date Type Department Care Team (Late st Contact Info) Description 04/28/2014 Documentation EM Family Medicine [address] [place] [address] Family Medicine, Physician [address] [place], [place] [phone] Social History Tobacco Use Types Packs/Day Years [...] on filedocumented in this encounter Care Teams Day Haul Youth Supervisor Relationship Specialty Start Date End Date Vianney Aguilar MD [address] [place] [address] [place] [address] PCP - General 06/15/17 02/15/23 documented as of this encounter
--- OUTSIDE RECORDS SUMMARY | 2025-08-26 19:43 | XMS_ITS | Encounter Summary ---
Author Organization [facility] Address [address] [place] [phone] Phone Care Team Providers Care Charge Weigher Name Role Phone Vianney Aguilar MD Primary Care Provider Encounter Details Date Type Department Care Team (Late st Contact Info) Description 10/27/2011 Documentation EM Family Medicine [address] [place] [address] Family Medicine, Physician [address] [place], [place] [phone] Social History Tobacco Use Types Packs/Day Years [...] on filedocumented in this encounter Care Teams Charge Weigher Relationship Specialty Start Date End Date Vianney Aguilar MD [address] [place] [address] [place] [address] PCP - General 06/15/17 02/15/23 documented as of this encounter
--- OUTSIDE RECORDS SUMMARY | 2025-08-26 19:43 | XMS_ITS | Encounter Summary ---
Author Organization [facility] Address [address] [place] [address] Phone Care Team Providers Care Plane Tableman Name Role Phone Vianney Aguilar MD Primary Care Provider Encounter Details Date Type Department Care Team (Late st Contact Info) Description 06/14/2011 Documentation EM Family Medicine [address] [place] [address] Family Medicine, Physician [address] [place], [place] [phone] Social History Tobacco Use Types Packs/Day Years [...] on filedocumented in this encounter Care Teams Plane Tableman Relationship Specialty Start Date End Date Vianney Aguilar MD [address] [place] [address] [place] [address] PCP - General 06/15/17 02/15/23 documented as of this encounter
--- OUTSIDE RECORDS SUMMARY | 2025-08-26 19:44 | XMS_ITS | Encounter Summary ---
Author Organization [facility] Address [address] [place] [address] Phone Care Team Providers Care Cleaner And Presser Name Role Phone Vianney Aguilar MD Primary Care Provider Encounter Details Date Type Department Care Team (Late st Contact Info) Description 08/08/2011 Documentation EM Family Medicine [address] [place] [address] Family Medicine, Physician [address] [place], [place] [phone] Social History Tobacco Use Types Packs/Day Years [...] on filedocumented in this encounter Care Teams Cleaner And Presser Relationship Specialty Start Date End Date Vianney Aguilar MD [address] [place] [address] [place] [address] PCP - General 06/15/17 02/15/23 documented as of this encounter
--- OUTSIDE RECORDS SUMMARY | 2025-08-26 19:44 | XMS_ITS | Encounter Summary ---
Author Organization [facility] Address [address] [place] [address] Phone Care Team Providers Care Corporate Travel Manager Name Role Phone Vianney Aguilar MD Primary Care Provider Encounter Details Date Type Department Care Team (Late st Contact Info) Description 06/16/2011 Documentation EM Family Medicine [address] [place] [address] Family Medicine, Physician [address] [place], [place] [phone] Social History Tobacco Use Types Packs/Day Years [...] on filedocumented in this encounter Care Teams Corporate Travel Manager Relationship Specialty Start Date End Date Vianney Aguilar MD [address] [place] [address] [place] [address] PCP - General 06/15/17 02/15/23 documented as of this encounter
--- OUTSIDE RECORDS SUMMARY | 2025-08-26 19:44 | XMS_ITS | Encounter Summary ---
Author Organization [facility] Address [address] [place] [phone] Phone Care Team Providers Care Administration Vice President Name Role Phone Vianney Aguilar MD Primary Care Provider Encounter Details Date Type Department Care Team (Late st Contact Info) Description 06/14/2011 Documentation EM Family Medicine [address] [place] [address] Family Medicine, Physician [address] [place], [place] [phone] Social History Tobacco Use Types Packs/Day Years [...] on filedocumented in this encounter Care Teams Administration Vice President Relationship Specialty Start Date End Date Vianney Aguilar MD [address] [place] [address] [place] [address] PCP - General 06/15/17 02/15/23 documented as of this encounter
== END 2025-08-26 14:08 | disposition left against medical advice (07) ==
PROVIDERS: Emergency Provider Emergency Medicine
DX: T14.8XXA Other injury of unspecified body region, initial encounter (principal); F14.10 Cocaine abuse, uncomplicated; V47.5XXA Car driver injured in collision with fixed or stationary object in traffic accident, initial encounter; Y93.89 Activity, other specified; Y92.488 Other paved roadways as the place of occurrence of the external cause; Y99.8 Other external cause status; Z53.29 Procedure and treatment not carried out because of patient's decision for other reasons
CPT/HCPCS: 99282